=== PATIENT | male | born 1960 | race Two or more races ===

== ENCOUNTER 2022-05-20 22:44 | Inpatient (IN) | payer MEDICAID ==
[~2022-05-20] VITALS: Ht 157.5 cm; Wt 68.9 kg
--- NOTE | 2022-05-20 23:00 | NUR ---
TO ER BED 11. [id number] FROM HOME C/O GLF AFTER DRINKING. REMA ARM PAIN . RR EVEN AND NONLABORED. CONNECTED TO MONITOR. SAFETY PRECAUTIONS IN PLACE. AWAITING MD ORDERS
[2022-05-20] MEDS ORDERED: IV NS 0.9% 1,000 ML BAG IV ONE (23:30)
[2022-05-20 23:33] LABS: BASOPHILS % (AUTO) 0.9 % (0.0-2.0); EOSINOPHILS % (AUTO) 1.9 % (0.0-6.0); HEMATOCRIT 40 % (39-51); HEMOGLOBIN 13.6 g/dL (13.5-17.5); LYMPHOCYTES # (AUTO) 1.8 K/uL (0.8-4.8); LYMPHOCYTES % (AUTO) 36.7 % (20.0-44.0); MEAN CORPUSCULAR HGB CONC 34 g/dl (31.0-36.0); MEAN CORPUSCULAR VOLUME 104 fL (80-96); MONOCYTES # (AUTO) 0.4 K/uL (0.1-1.30); MONOCYTES % (AUTO) 8.3 % (2.0-12.0); NEUTROPHILS # (AUTO) 2.5 K/uL (1.8-8.9); NEUTROPHILS % (AUTO) 52.2 % (43.0-81.0); PLATELET COUNT (AUTO) 166 K/uL (150-450); WHITE BLOOD COUNT (AUTO) 4.8 K/uL (4.3-11.0)
--- NOTE | 2022-05-20 23:42 | NUR ---
BLOOD COLLECTED AND SENT TO LAB
--- NOTE | 2022-05-20 23:42 | NUR ---
IV LINE ESTABLISHED, LAC20G
--- NOTE | 2022-05-21 00:23 | NUR ---
COVID SWAB COLLECTED AND SENT TO LAB
[2022-05-21 00:25] LABS: ALANINE AMINOTRANSFERASE 19 U/L (12-78); ALBUMIN 3.5 g/dL (3.4-5.0); ALCOHOL, BLOOD 230 mg/dL (0-0); ALKALINE PHOSPHATASE 53 U/L (46-116); ASPARTATE AMINOTRANSFERASE 19 U/L (15-37); BILIRUBIN,DIRECT 0.3 mg/dL (0.0-0.2); BILIRUBIN,TOTAL 1.2 mg/dL (0.2-1.0); TOTAL PROTEIN, SERUM 6.7 g/dL (6.4-8.2)
[2022-05-21] MEDS ORDERED: DILTIAZEM HCL 25 MG IV IV ONE (00:30)
[2022-05-21] MEDS ORDERED: DILTIAZEM HCL 50 MG IV ONE (00:35)
[2022-05-21 00:49] LABS: CALCIUM, SERUM 8.3 mg/dL (8.5-10.1); POTASSIUM 3.5 mmol/L (3.5-5.1)
[2022-05-21] MEDS ORDERED: Z GUARD REMEDY 4 OZ OINT TP PRN (01:00)
[2022-05-21] MEDS ORDERED: ONDANSETRON HCL/PF 4 MG/2 ML VIAL IVP PRN (01:00)
[2022-05-21] MEDS ORDERED: LORAZEPAM INJ 2 MG/ML VIAL IV PRN (01:00)
[2022-05-21] MEDS ORDERED: MAG HYDROX/AL HYDROX/SIMETH 30 ML UDC PO PRN (01:00)
[2022-05-21] MEDS ORDERED: MAGNESIUM HYDROXIDE 30 ML UDC PO PRN (01:00)
[2022-05-21] MEDS ORDERED: MORPHINE SULFATE INJ 2 MG/ML DISP.SYRIN IV PRN (01:00)
[2022-05-21] MEDS ORDERED: ACETAMINOPHEN 325 MG TABLET PO PRN (01:00)
[2022-05-21] MEDS ORDERED: TEMAZEPAM 15 MG CAPSULE PO PRN (01:00)
[2022-05-21] MEDS ORDERED: AMIODARONE 150 MG/3 ML VIAL IV ONE (01:00)
--- NOTE | 2022-05-21 02:52 | NUR ---
AMIODARINE DRIP VIA IV PUMP INITIATED @1MG/MIN
--- NOTE | 2022-05-21 03:11 | NUR ---
BED 106
--- NOTE | 2022-05-21 03:45 | NUR ---
REPORT GIVEN TO DARYN MUJICA FOR ZULEIMA
[2022-05-21 04:00] VITALS: BP 119/82
[2022-05-21] MEDS ORDERED: AMIODARONE 150 MG in IV D5W 100 ML IV ONE (04:00)
[2022-05-21] MEDS ORDERED: AMIODARONE 900 MG in IV D5W 482 ML IV PRN (04:00)
--- NOTE | 2022-05-21 04:30 | NUR ---
RN NOTE O430 RECEIVED 62 Y/O M PATIENT FROM ER VIA GURNEY ACCOMPANIED BY 2 ER STAFF, ON RA TOLERATING WELL SATING 99%, PATIENT IS AWAKE AND VERBALLY RESPONSIVE. SYRIAC SPEAKING, WITH IV ACCESS ON LFA #20G RUNNING AMIODARONE 1 MG, PER STEPHANIA MUJICAAIRCRAFT ELECTRONICS TECHNICAL OFFICER WASN'T SCANNED FROM THE ER BUT THEY STARTED IT 0250. ADMISSION CARE RENDERED, SKIN ASSESSMENT DONE, PICTURES TAKEN AND PLACED ON CHART, ABLE TO TURN AND REPOSITION, SAFETY PRECAUTIONS IN PLACED; CALL LIGHT WITHIN REACH AND INSTRUCTED TO CALL FOR ASSISTANCE, BED IN LOWEST AND LOCKED POSITION, V/S TAKEN AND RECORDED, WILL CONT TO MONITOR THROUGHOUT THE SHIFT.
[2022-05-21] MEDS: IV NS 0.9% 1,000 ML IV PRN ×2 (04:51→17:15)
[2022-05-21] MEDS: AMIODARONE 450 MG in IV D5W 241 ML IV PRN ×2 (05:12→08:22)
--- NOTE | 2022-05-21 06:59 | NUR ---
REJI RN CLOSING NOTES PT IN BED, A/O X 3, ABLE TO MAKE NEEDS KNOWN. ON ROOM AIR O2 SAT 100% NO SOB NO DISTRESS, RESPIRATION EVEN AND UNLABORED, ON TELE MONITORING CURRENTLY READING SR/ST AT 95, DENIES PAIN, IV ACCESS TO LFA #20G INTACT, PATENT, FLUSHES WELL, WITH NS AT 75 ML/HR AND AMIODARONE DRIP AT 1MG INFUSING WELL, USES URINAL WITH YELLOW COLORED URINE, ALL DUE MEDS GIVEN, KEPT DRY AND CLEAN, ALL SAFETY MEASURES IN PLACE. HOB ELEVATED. CALL LIGHT WITHIN REACH. BED IN LOWEST AND LOCKED POSITION, WILL ENDORSE TO AM SHIFT FOR CONTINUITY OF CARE.
[2022-05-21 08:00] VITALS: BP 143/82
--- NOTE | 2022-05-21 08:00 | NUR ---
REJI RN NOTES PT IN BED, A/O X 3, ABLE TO MAKE NEEDS KNOWN. ON ROOM AIR O2 SAT 98% NO SOB NO DISTRESS, RESPIRATION EVEN AND UNLABORED, ON TELE MONITORING CURRENTLY READING A FIB AT 86, DENIES PAIN, IV ACCESS TO LFA #20G INTACT, PATENT, FLUSHES WELL, WITH NS AT 75 ML/HR AND AMIODARONE DRIP AT 1MG INFUSING WELL, USES URINAL WITH YELLOW COLORED URINE, KEPT DRY AND CLEAN, ALL SAFETY MEASURES IN PLACE. HOB ELEVATED. CALL LIGHT WITHIN REACH. BED IN LOWEST AND LOCKED POSITION, WILL MONITOR
[2022-05-21] MEDS: PANTOPRAZOLE 40 MG TABLET.DR PO SCH (08:17)
--- NOTE | 2022-05-21 08:30 | NUR ---
REJI RN NOTE SPOKE WITH DR AVENDANO CHASSIS ENGINEER NOTIFIED THAT PATIENT WITH DX AFIB ON AMIODARONE DRIP STATED OK, WILL CONT TO ADMINISTER PER HOSPITAL PROTOCOL
--- NOTE | 2022-05-21 09:20 | NUR ---
REJI RN NOTE 2D ECHO DONE ORDERED WILL MONITOR
[2022-05-21] MEDS ORDERED: METO50TA16 PO (10:12)
[2022-05-21] MEDS ORDERED: MELO-107 PO (10:12)
[2022-05-21] MEDS ORDERED: LISI2.5T2 PO (10:12)
[2022-05-21] MEDS ORDERED: CETI10TA14 PO (10:12)
[2022-05-21] MEDS ORDERED: TAMS-12 PO (10:12)
[2022-05-21] MEDS ORDERED: RIVA10TA PO (10:12)
[2022-05-21] MEDS: METOPROLOL TARTRATE 50 MG TABLET PO SCH ×2 (10:42→16:23)
[2022-05-21] MEDS: LISINOPRIL (5MG) 5 MG TABLET PO SCH (10:42)
--- NOTE | 2022-05-21 11:56 | NUR ---
telecommunications repairer note assisted to br ,keep clean dry , all needs attended , on amiodarone drip as ordered with 0.5 mg per hour
[2022-05-21 12:00] VITALS: BP 145/90
--- NOTE | 2022-05-21 14:04 | NUR ---
radiotelegraph operator note spoke with dr Omid Mcdonald notified that patient on amiodarone drip will will be done at 0200 ,stated that w will convert to amiodarone po tomorrow morning
[2022-05-21 16:00] VITALS: BP 149/90
--- NOTE | 2022-05-21 18:38 | NUR ---
REJI RN NOTE PATIENT RESTING COMFORTABLY IN BED, ALERT ORIENTED ,ON RA, NO SOB NOTED AT THIS TIE , CALL LIGHT WITHIN REACH , CONT ON IVF AND AMIODARONE 1.5 MG IV DRIP ORDERED, ON TELE MONITOR CURRENT READING STILL AFIB HR 116 , LT AC HL INTACT AND FLUSHED WELL , BED IN LOWEST AND LOCKED POSITION , SAFETY MEASURE IMPLEMENTED, WILL CONT TO MONITOR CLOSELY
--- NOTE | 2022-05-21 19:30 | NUR ---
PATIENT RESTING COMFORTABLY IN BED, A/O x3, NIGERIEN SPEAKING ,ON RA, NO SOB NOTED AT THIS TIMEE, ON IVF NS AT 75ML/HR, AND AMIODARONE 1.5 MG IV DRIP ORDERED, ON TELE MONITOR CURRENT READING STILL AFIB WITH A HR OF 116 , LT AC HL INTACT AND FLUSHED WELL, PT CAN USE URINAL AT BEDSIDE AND COMMODE AT BED SIDE WITH ASSIST, SAFETY MEASURES IN PLACE, BED IN LOWEST AND LOCKED POSITION, HEAD OF BED SLIGHTLY ELEVATED, SIDE RAILS UP X2, CALL LIGHT WITHIN REACH, WILL CONTINUE PLAN OF CARE.
[2022-05-21 20:00] VITALS: BP 153/90
[2022-05-21] MEDS: HYDROCODONE/APAP 5/325MG TABLET PO PRN (20:28)
[2022-05-21] MEDS ORDERED: DIGOXIN INJ 0.5 MG/2 ML AMPUL IV ONE (22:00)
[2022-05-21] MEDS ORDERED: DIGOXIN INJ 0.5 MG/2 ML AMPUL IV SCH (22:00)
--- NOTE | 2022-05-21 22:04 | NUR ---
REJI RN NOTE PT REMAIN ON AMIO DRIP AT 0.5 MG/HR WHICH WILL FINISH AT 0200. ALSO PT ON A FIB CONTROLLED AND UNCONTROLLED HR 106-[address] AVENDANO AND RECIEVED NEW ORDER OF DIG 0.25 MG NOW AND REPEAT AT 0300 AND O900. ORDER NOTED AND CARRIED OUT. CONTINUE TO MONITOR HR AND PT CONDITION .
--- NOTE | 2022-05-21 23:48 | NUR ---
Pt complains of generalized pain. BP 160/90. HR 104. Charge nurse informed. Pain med given as requested and as ordered. Will continue to monitor.
[2022-05-22] VITALS: BP 160/99
[2022-05-22] MEDS: DIGOXIN INJ 0.5 MG/2 ML AMPUL IV SCH ×2 (03:06→09:19)
[2022-05-22 04:00] VITALS: BP 160/90
[2022-05-22] MEDS: HYDROCODONE/APAP 5/325MG TABLET PO PRN (04:35)
--- NOTE | 2022-05-22 04:52 | NUR ---
LT AC IV ACCESS INFILTRATED. REMOVED AND APPLIED PRESSURE ON SITE. REINSERTED IV ACCESS ON LT HAND G#22. PT TOLERATED PROCEDURE WELL. ELEVATED EXTREMITY.
[2022-05-22] MEDS: IV NS 0.9% 1,000 ML IV PRN (06:51)
--- NOTE | 2022-05-22 06:53 | NUR ---
PATIENT SLEEPING COMFORTABLY IN BED, A/O x3, KHMER SPEAKING ,ON RA, NO SOB NOTED AT THIS TIME, ON IVF NS AT 75ML/HR, ON TELE MONITOR CURRENT READING CONTROLLED AFIB WITH A HR OF 99-114, LT HAND IV ACCESS INTACT AND FLUSHED WELL, INFUSING 0.9NS AT 75 ML/HR. PT CAN USE URINAL AT BEDSIDE AND COMMODE AT BED SIDE WITH ASSIST, SAFETY MEASURES MAINTAINED, BED IN LOWEST AND LOCKED POSITION, HEAD OF BED SLIGHTLY ELEVATED, SIDE RAILS UP X2, CALL LIGHT WITHIN REACH, WILL ENDORSE TO NEXT NURSE ON DUTY FOR CONTINUITY OF CARE.
[2022-05-22 07:09] LABS: CALCIUM, SERUM 8.1 mg/dL (8.5-10.1); PHOSPHORUS 2.4 mg/dL (2.5-4.9); POTASSIUM 3.7 mmol/L (3.5-5.1)
--- NOTE | 2022-05-22 07:25 | NUR ---
REJI RN OPENING NOTES: RECEIVED PT FOR CONTINUITY OF CARE. PATIENT A/OX4 IN NO S/SX OF ACUTE DISTRESS AT THIS TIME; CURRENtly ON ROOM AIR; WITH 02 SAT >95% AT THIS TIME.WITH IV ACCESS ON LEFT HAND PATENT, INTACT AND FLUSHING WELL. WITH RUNNING NS@75CC/HRWILL ENSURE SAFETY MEASURES WITHIN THE SHIFT. PATIENT BED ALARM IS ON. HEAD OF BED ELEVATED. BED IS LOCKED, IN LOWEST POSITION AND SIDE RAILS UP. CALL LIGHT WITHIN REACH OF THE PATIENT. WILL CONTINUE TO MONITOR AND REASSESS FOR ANY CHANGES AND WILL CARRY OUT ANY ONGOING AND ACTIVE MD ORDER.
[2022-05-22 07:34] LABS: BASOPHILS % (AUTO) 0.7 % (0.0-2.0); EOSINOPHILS % (AUTO) 3.3 % (0.0-6.0); HEMATOCRIT 39 % (39-51); HEMOGLOBIN 13.3 g/dL (13.5-17.5); LYMPHOCYTES # (AUTO) 1.8 K/uL (0.8-4.8); LYMPHOCYTES % (AUTO) 34.7 % (20.0-44.0); MEAN CORPUSCULAR HGB CONC 34 g/dl (31.0-36.0); MEAN CORPUSCULAR VOLUME 104 fL (80-96); MONOCYTES # (AUTO) 0.4 K/uL (0.1-1.30); MONOCYTES % (AUTO) 7.8 % (2.0-12.0); NEUTROPHILS # (AUTO) 2.8 K/uL (1.8-8.9); NEUTROPHILS % (AUTO) 53.5 % (43.0-81.0); PLATELET COUNT (AUTO) 153 K/uL (150-450); RED BLOOD CELL COUNT(AUTO) 3.75 MIL/uL (4.5-6.0); WHITE BLOOD COUNT (AUTO) 5.2 K/uL (4.3-11.0)
[2022-05-22] MEDS: PANTOPRAZOLE 40 MG TABLET.DR PO SCH (07:52)
[2022-05-22 08:00] VITALS: BP 161/102
[2022-05-22] MEDS: LISINOPRIL (5MG) 5 MG TABLET PO SCH (08:04)
[2022-05-22] MEDS: METOPROLOL TARTRATE 50 MG TABLET PO SCH ×2 (08:04→17:27)
[2022-05-22] MEDS: TAMSULOSIN 0.4 MG CAP.SR.24H PO SCH (09:19)
[2022-05-22] MEDS: RIVAROXABAN 10 MG TABLET PO SCH (09:22)
--- NOTE | 2022-05-22 09:58 | NUR ---
RN NOTES: PT COMPLAINED OF BOTH GROIN ITCHINESS, SKIN INTACT NO RASH NO REDNESS, SPOKE TO dr Luisa Dumont WITH ORDER OF KETOCONAZOLE CREAM
[2022-05-22] MEDS: KETOCONAZOLE 2% CREAM 15 GM TUBE TP SCH ×2 (11:26→17:27)
[2022-05-22 12:00] VITALS: BP 154/94
[2022-05-22] MEDS ORDERED: NEUTRA PHOS 1 POWD.PACKET PO ONE (13:00)
[2022-05-22] MEDS: ENSURE ENLIVE 237 ML LIQUID (VANILLA) PO SCH ×2 (13:15→17:41)
[2022-05-22 16:00] VITALS: BP 125/80
--- NOTE | 2022-05-22 16:31 | NUR ---
RN NOTES: PT BECAME TEL NOT REJI PER MD ORDER
--- NOTE | 2022-05-22 19:25 | NUR ---
ACCOUNT SERVICES REPRESENTATIVE CLOSING NOTES: PATIENT REMAINS IN ROOM IN NO SIGNS OF RESPIRATORY DISTRESS, PATIENT SON ROOM AIR SATURATING @ >95% SP02. SAFETY MEASURES IMPLEMENTED, BED IN LOWEST POSITION, LOCKED, SIDE RAILS UP, CALL LIGHT WITHIN REACH. ALL NEEDS AND ORDERS ADDRESSED DURING THE SHIFT. IV ACCESS MAINTAINED INTACT, SECURED AND FLUSHING WELL. ALL DUE MEDS GIVEN ORDERED & SCHEDULED ; PATIENT TOLERATED WELL. PATIENT KEPT CLEAN AND COMFORTABLE WITHIN THE SHIFT. PATIENT ENDORSED TO INCOMING SHIFT RN WITH STABLE VITAL SIGN AND FOR CONTINUITY OF CARE.
--- NOTE | 2022-05-22 19:43 | NUR ---
RN OPENING NOTE PATIENT AWAKE IN BED. A/OX3. NO S/S OF DISTRESS, BREATHING WITHOUT DIFFICULTY ON ROOM AIR. L-HAND #22 INTACT AND PATENT W/ NS 75ML/HR. TELE READS AFIB 79. SAFETY MEASURES IN PLACE: BED LOCKED IN PLACE AND AT LOWEST POSITION, RAILS UP X2, CALL HEADLEY WITHIN REACH. WILL CONTINUE TO MONITOR PATIENT.
[2022-05-22 20:00] VITALS: BP 151/91
--- NOTE | 2022-05-22 20:39 | NUR ---
RN NOTE PATIENT EXHIBITS FEVER OF 99.4. ICE BAGS PLACED UNDER ARMS BILAT. TYLENOL WILL BE ADMINISTERED. PATIENT OTHERWISE STABLE.
[2022-05-23] VITALS: BP 132/87
[2022-05-23 04:19] VITALS: BP 145/100
[2022-05-23] MEDS: IV NS 0.9% 1,000 ML IV PRN (04:28)
--- NOTE | 2022-05-23 06:42 | NUR ---
RN CLOSING NOTE PATIENT ASLEEP IN BED. A/OX3. NO S/S OF DISTRESS, BREATHING WITHOUT DIFFICULTY ON ROOM AIR. L-HAND #22 INTACT AND PATENT W/ NS 75ML/HR. TELE READS AFIB CONTROLLED 87. SAFETY MEASURES IN PLACE: BED LOCKED AND AT LOWEST POSITION, RAILS UP X2, CALL HEADLEY WITHIN REACH. WILL ENDORSE TO NEXT SHIFT FOR ZULEIMA.
--- NOTE | 2022-05-23 07:30 | NUR ---
RN OPENING NOTE PATIENT IS IN BED ASLEEP BUT EASILY AROUSABLE. ALERT AND ORIENTED X 4. ON ROOM AIR, BREATHING UNLABORED AND NOT IN ANY FORM OF DISTRESS. A-FIBRILLATION IN CONTROLLED RATE ON METER SETTER. WITH LEFT HAND GAUGE 22 IV LINE INFUSING WITH NS AT 75 ML/HR. ALL HOSPITAL SAFETY PRECAUTIONS IN PLACE. BED IS LOCKED IN LOWEST POSITION, 3 SIDE RAILS UP, CALL LIGHT WITHIN REACH. WILL CONTINUE TO MONITOR THROUGHOUT SHIFT.
[2022-05-23 08:00] VITALS: BP 155/97
[2022-05-23] MEDS ORDERED: LISINOPRIL (20MG) 20 MG TABLET PO SCH (09:00)
[2022-05-23] MEDS: METOPROLOL TARTRATE 50 MG TABLET PO SCH (09:10)
[2022-05-23 09:11] VITALS: BP 155/97
[2022-05-23] MEDS: RIVAROXABAN 10 MG TABLET PO SCH (09:11)
[2022-05-23] MEDS: TAMSULOSIN 0.4 MG CAP.SR.24H PO SCH (09:11)
[2022-05-23] MEDS: PANTOPRAZOLE 40 MG TABLET.DR PO SCH (09:11)
[2022-05-23] MEDS: ENSURE ENLIVE 237 ML LIQUID (VANILLA) PO SCH ×2 (09:13→12:18)
[2022-05-23] MEDS: KETOCONAZOLE 2% CREAM 15 GM TUBE TP SCH (09:56)
--- NOTE | 2022-05-23 11:00 | NUR ---
RN NOTE PATIENT DOWNGRADED TO MED-SURGE.
[2022-05-23] MEDS ORDERED: THIA100T88 PO (14:26)
[2022-05-23] MEDS ORDERED: KETO15CR2 TP (14:28)
[2022-05-23] MEDS ORDERED: LISI20TA30 PO (14:28)
[2022-05-23] MEDS ORDERED: METO50TA16 PO (14:28)
[2022-05-23] MEDS ORDERED: INFLUENZA VACCINE 2022-23 0.5 ML DISP.SYRIN IM ONE (15:30)
--- NOTE | 2022-05-23 15:36 | NUR ---
RN CLOSING NOTE PATIENT IS DISCHARGED TO HOME IN STABLE CONDITION, BREATHING UNLABORED AND NOT IN ANY FORM OF DISTRESS. FLU VACCINE ADMINISTERED ORDERED. NO UNTOWARD SIGNS AND SYMPTOMS NOTED AFTER ADMINISTRATION. ALL FORMS SIGNED, PATIENT EDUCATION MATERIALS AND DISCHARGE INSTRUCTIONS GIVEN. IV DISCONTINUED. DISCHARGE V/S: T 98, HR 83, RR 18, O2 SATURATION 97%, BP 148/93.
== END 2022-05-23 15:40 | disposition home or self-care (01) | DRG 201 ==
LOC: ER 22:50 → TELE1 05-21 03:48 → TELE-TD 05-21 08:01 → TELE1 05-22 16:32 → MEDSG1 05-23 08:20
PROVIDERS: ADMIT Nurse Practitioner Acute Care; ATTEND Nurse Practitioner Acute Care
DX: I48.91 Unspecified atrial fibrillation (principal); D68.59 Other primary thrombophilia; S09.90XA Unspecified injury of head, initial encounter; F10.129 Alcohol abuse with intoxication, unspecified; I10 Essential (primary) hypertension; Y90.7 Blood alcohol level of 200-239 mg/100 ml; Z20.822 Contact with and (suspected) exposure to COVID-19; W19.XXXA Unspecified fall, initial encounter; Y92.9 Unspecified place or not applicable; S80.10XA Contusion of unspecified lower leg, initial encounter; S40.029A Contusion of unspecified upper arm, initial encounter; N40.0 Benign prostatic hyperplasia without lower urinary tract symptoms; F17.200 Nicotine dependence, unspecified, uncomplicated
CPT/HCPCS: 36415; 70450-TC; 71045-TC; 72125-TC; 73080-TC; 80048-TC; 80076-TC; 83735-TC; 84100-TC; 84484-TC; 85025-TC; 85730-TC; 87081-TC; 93307-TC; C9803; G0378; G0480; J0282; J1160; J3490; J7030; J7060; Q2036

== ENCOUNTER 2022-11-07 20:34 | Inpatient (IN) | payer MEDICAID ==
[~2022-11-07] VITALS: Ht 165.1 cm; Wt 65.8 kg
[~2022-11-07 20:34] MED LIST: CETI10TA14 PO; KETO15CR2 TP; LISI20TA30 PO; MELO-107 PO; METO50TA16 PO; RIVA10TA PO; TAMS-12 PO; THIA100T88 PO
[2022-11-07 21:10] LABS: BASOPHILS % (AUTO) 0.8 % (0.0-2.0); EOSINOPHILS % (AUTO) 2.8 % (0.0-6.0); HEMATOCRIT 39 % (39-51); HEMOGLOBIN 12.9 g/dL (13.5-17.5); LYMPHOCYTES # (AUTO) 2.9 K/uL (0.8-4.8); MEAN CORPUSCULAR HGB CONC 33 g/dl (31.0-36.0); MEAN CORPUSCULAR VOLUME 103 fL (80-96); MONOCYTES # (AUTO) 0.7 K/uL (0.1-1.30); MONOCYTES % (AUTO) 11.4 % (2.0-12.0); NEUTROPHILS # (AUTO) 2.2 K/uL (1.8-8.9); PLATELET COUNT (AUTO) 170 K/uL (150-450); RED BLOOD CELL COUNT(AUTO) 3.75 MIL/uL (4.5-6.0)
[2022-11-07 21:23] LABS: CALCIUM, SERUM 8.9 mg/dL (8.5-10.1); CARBON DIOXIDE 30 mmol/L (21-32); CHLORIDE 106 mmol/L (98-107); GLUCOSE 99 mg/dL (74-106); SODIUM SERUM 139 mmol/L (136-145); UREA NITROGEN, BLOOD 18 mg/dL (7-18)
[2022-11-07] MEDS ORDERED: HYDROCODONE/APAP 5/325MG TABLET ONE (21:46)
[2022-11-07] MEDS ORDERED: HYDROCODONE/APAP 5/325MG TABLET PO ONE (22:00)
--- NOTE | 2022-11-07 23:49 | NUR ---
COVID SWAB DONE AND SENT TO LAB
[2022-11-08] MEDS ORDERED: ONDANSETRON HCL/PF 4 MG/2 ML VIAL IVP PRN
[2022-11-08] MEDS ORDERED: NITROGLYCERIN 0.4 MG/TAB BOTTLE SL ONE
[2022-11-08] MEDS ORDERED: MAGNESIUM HYDROXIDE 30 ML UDC PO PRN
[2022-11-08] MEDS ORDERED: ZOLPIDEM TARTRATE 5 MG TABLET PO PRN
[2022-11-08] MEDS ORDERED: MAG HYDROX/AL HYDROX/SIMETH 30 ML UDC PO PRN
[2022-11-08] MEDS ORDERED: MORPHINE SULFATE INJ 2 MG/ML DISP.SYRIN IV PRN
[2022-11-08] MEDS ORDERED: ACETAMINOPHEN 325 MG TABLET PO PRN
[2022-11-08] MEDS ORDERED: Z GUARD REMEDY 4 OZ OINT TP PRN
[2022-11-08] MEDS ORDERED: LORAZEPAM 1 MG TABLET PO PRN (00:30)
[2022-11-08] MEDS ORDERED: METOPROLOL TARTRATE 25 MG TABLET PO SCH (01:02)
--- NOTE | 2022-11-08 01:24 | NUR ---
REPORT GIVEN TO JOSE MUJICA FOR ZULEIMA
--- NOTE | 2022-11-08 01:32 | NUR ---
COVID SWAB DONE AND SENT TO LAB
--- NOTE | 2022-11-08 02:32 | NUR ---
CALLED LAB TO WAREHOUSE ORDER PICKER COVID SPECIMEN. NO ANSWER.
--- NOTE | 2022-11-08 03:47 | NUR ---
TRANSFERRED TO BED 114 IN STABLE CONDITION
[2022-11-08] MEDS ORDERED: NITROGLYCERIN 0.4 MG/TAB BOTTLE ONE (03:53)
[2022-11-08 04:00] VITALS: BP 150/95
--- NOTE | 2022-11-08 04:00 | NUR ---
LAST PICKERTIE WORKER NOTE PT TRANSPORTED VIA GURNEY TO UNIT FROM ER AT THIS TIME. PT ADMITTED TO TELE FROM ER UNDER ORACLE IAM CONSULTANT DANYELL FOR ADMITTING DX CHEST PAIN. A/O X3 AND ABLE TO MAKE NEEDS KNOWN. PT STABLE ON ROOM AIR, SATURATING 97%. NO SOB OR S/S OF RESPIRATORY DISTRESS. BREATHING EVEN AND UNLABORED. ON EXTERNAL TOOLROOM CHECKER READING UNCONTROLLED A FIB 120 BPM. NOTED WITH UNRESOLVED CHEST PAIN 7/10 UPON EXERTION, 0/10 AT REST. IV ACCESS RAC 18G, INTACT AND PATENT. SKIN IS INTACT. AMBULATORY WITH STEADY GAIT. PT BELONGINGS ACCOUNTED FOR AND BELONGINGS LIST SIGNED. ORIENTED TO UNIT, ROOM, AND STAFF. SAFETY PRECAUTIONS IN PLACE. BED IN LOWEST LOCKED POSITION, HOB ELEVATED, SIDE RAILS UP X2, AND CALL LIGHT AND TABLE WITHIN REACH. ALL NEEDS MET AT THIS TIME.
--- NOTE | 2022-11-08 04:05 | NUR ---
RN NOTE COMPLAINT OF CHEST PAIN 7/10 UPON EXERTION. PROVIDED NITRO SL 0.4 MG ORDERED EVERY 5 MINUTES X3 DOSES. PT STATED AFTER 3RD DOSE THAT HE DID FEEL RELIEF, BUT IS STILL A LITTLE PAINFUL WHILE MOVING AROUND. PAIN 0/10 AT REST AT THIS TIME. CHARGE NURSE MARK DUFF.
[2022-11-08] MEDS: IV NS 0.9% 1,000 ML IV PRN ×2 (04:47→17:28)
--- NOTE | 2022-11-08 06:39 | NUR ---
DISTRICT MANAGER CLOSING NOTE PT AWAKE IN BED. A/O X3 AND ABLE TO MAKE NEEDS KNOWN. PT STABLE ON ROOM AIR, SATURATING 96%. NO SOB OR S/S OF RESPIRATORY DISTRESS. BREATHING EVEN AND UNLABORED. ON EXTERNAL DEPUTY SHERIFF CHIEF READING CONTROLLED A FIB 77 BPM. IV ACCESS RAC 18G, INTACT AND PATENT, RUNNING NS @ 75 ML/HR. ALL DUE MEDS GIVEN ORDERED. SAFETY PRECAUTIONS IN PLACE AT ALL TIMES. BED IN LOWEST LOCKED POSITION, HOB ELEVATED, SIDE RAILS UP X2, AND CALL LIGHT AND TABLE WITHIN REACH. ALL NEEDS MET AT THIS TIME AND WILL ENDORSE TO ONCOMING NURSE FOR ZULEIMA.
[2022-11-08 06:47] LABS: BASOPHILS % (AUTO) 0.9 % (0.0-2.0); EOSINOPHILS % (AUTO) 3.4 % (0.0-6.0); HEMATOCRIT 37 % (39-51); HEMOGLOBIN 12.6 g/dL (13.5-17.5); LYMPHOCYTES # (AUTO) 2.2 K/uL (0.8-4.8); LYMPHOCYTES % (AUTO) 46.7 % (20.0-44.0); MEAN CORPUSCULAR HGB CONC 34 g/dl (31.0-36.0); MEAN CORPUSCULAR VOLUME 102 fL (80-96); MONOCYTES # (AUTO) 0.5 K/uL (0.1-1.30); MONOCYTES % (AUTO) 10.7 % (2.0-12.0); NEUTROPHILS # (AUTO) 1.8 K/uL (1.8-8.9); NEUTROPHILS % (AUTO) 38.3 % (43.0-81.0); PLATELET COUNT (AUTO) 165 K/uL (150-450); RED BLOOD CELL COUNT(AUTO) 3.64 MIL/uL (4.5-6.0); WHITE BLOOD COUNT (AUTO) 4.7 K/uL (4.3-11.0)
[2022-11-08 07:35] LABS: THYROID STIMULATING HORMONE 2.252 uIU/mL (0.358-3.74)
--- NOTE | 2022-11-08 07:40 | NUR ---
FARMWORKER POULTRY OPENING NOTE PT AWAKE IN BED. A/O X3 AND ABLE TO MAKE NEEDS KNOWN. BULGARIAN SPEAKING ON ROOM AIR TLOERATED WELL , NO SOB OR S/S OF RESPIRATORY DISTRESS. . ON EXTERNAL MANAGER BRIDGE READING CONTROLLED A FIB 77 BPM. IV ACCESS RAC 18G, INTACT AND PATENT, RUNNING NS @ 75 ML/HR. ALL DUE MEDS GIVEN ORDERED. SAFETY PRECAUTIONS IN PLACE AT ALL TIMES. BED IN LOWEST LOCKED POSITION, HOB ELEVATED, SIDE RAILS UP X2, AND CALL LIGHT AND TABLE WITHIN REACH. ALL NEEDS MET AT THIS TIME AND WILL CONTINUE OT MONITOR .
[2022-11-08] MEDS: THIAMINE HCL 100 MG TABLET PO SCH (08:43)
[2022-11-08] MEDS: FOLIC ACID 1 MG TABLET PO SCH (08:43)
[2022-11-08] MEDS: APIXABAN 5 MG TABLET PO SCH ×2 (08:50→21:13)
[2022-11-08] MEDS ORDERED: ASPIRIN 81 MG TAB.CHEW PO SCH (09:00)
[2022-11-08] MEDS ORDERED: PANTOPRAZOLE 40 MG VIAL IV SCH (09:00)
[2022-11-08 09:17] LABS: ALBUMIN 3.4 g/dL (3.4-5.0); BILIRUBIN,TOTAL 1.4 mg/dL (0.2-1.0); CALCIUM, SERUM 8.8 mg/dL (8.5-10.1); CREATININE 0.9 mg/dL (0.6-1.3); PHOSPHORUS 3.5 mg/dL (2.5-4.9); POTASSIUM 3.6 mmol/L (3.5-5.1); TOTAL PROTEIN, SERUM 6.1 g/dL (6.4-8.2)
[2022-11-08] MEDS: METOPROLOL TARTRATE 25 MG TABLET PO SCH ×3 (09:26→17:57)
[2022-11-08] MEDS ORDERED: ATOR10TA PO (11:18)
[2022-11-08] MEDS ORDERED: METO25TA20 PO (11:18)
[2022-11-08] MEDS ORDERED: ACET-2605 PO (11:18)
[2022-11-08] MEDS ORDERED: APIX5TAB PO (11:18)
[2022-11-08] MEDS ORDERED: TRAM50TA2 PO (11:18)
[2022-11-08] MEDS ORDERED: NAPR-1009 PO (11:18)
[2022-11-08 11:20] VITALS: BP 136/101
--- NOTE | 2022-11-08 18:42 | NUR ---
AIRCRAFT MAINTENANCE MANAGER CLOSING NOTE PT AWAKE IN BED. A/O X3 AND ABLE TO MAKE NEEDS KNOWN. INDONESIAN SPEAKING ON ROOM AIR TLOERATED WELL , NO SOB OR S/S OF RESPIRATORY DISTRESS. . ON EXTERNAL RAYON CONER READING CONTROLLED A FIB 113 BPM. IV ACCESS RAC 18G, INTACT AND PATENT, RUNNING NS @ 75 ML/HR. ALL DUE MEDS GIVEN ORDERED. PATIENT ABLE OT OG TO THE BATHROOM , NO S/S OF ALCOHOL WITHDRAWAL NOTED . SAFETY PRECAUTIONS IN PLACE AT ALL TIMES. BED IN LOWEST LOCKED POSITION, HOB ELEVATED, SIDE RAILS UP X2, AND CALL LIGHT AND TABLE WITHIN REACH. ALL NEEDS MET AT THIS TIME AND WILL ENDORSED TRO NEXT SHIFT .
[2022-11-08 19:10] LABS: BILIRUBIN,URINE NEGATIVE (NEGATIVE); LEUKOCYTE ESTERASE ,URINE NEGATIVE (NEGATIVE); NITRITE, URINE NEGATIVE (NEGATIVE); PROTEIN,URINE NEGATIVE (NEGATIVE); UGLUCOSE NEGATIVE (NEGATIVE); UROBILINOGEN,URINE 0.2 EU/dL (0.2)
[2022-11-08 19:21] LABS: COLOR,URINE LIGHT YELLOW (YELLOW)
--- NOTE | 2022-11-08 19:30 | NUR ---
RN NOTE RECEIVED PT IN BED, ALERT, AND ORIENTED X3. ABLE TO MAKE NEEDS KNOWN, ABLE TO FOLLOW COMMANDS. DENIES PAIN OR DISCOMFORT AT THIS TIME. PT ON ROOM AIR, WELL SHEYLA, NO ACUTE RESP DISTRESS, RESPIRATION EVEN AND UNLABORED. PT ATTACHED TO EXTERNAL EDGE FINISHER CURRENT READING AFIB HR93. NS INSFUSING AT 75ML/HR ON RAC 18G. PT AMBULATORY W/ ASSIST, BRP AND USES URINAL. CALL LIGHT WITHIN EASY, SAFETY PRECAUTION OBSERVED, BED ALARM ON. WILL CONTINUE POC.
[2022-11-08 20:00] VITALS: BP 135/72
[2022-11-09] VITALS: BP 133/76
[2022-11-09] MEDS: METOPROLOL TARTRATE 25 MG TABLET PO SCH ×4 (00:24→17:54)
[2022-11-09 04:00] VITALS: BP 140/78
[2022-11-09] MEDS: IV NS 0.9% 1,000 ML IV PRN (05:53)
[2022-11-09 06:48] LABS: EOSINOPHILS % (AUTO) 2.9 % (0.0-6.0); HEMATOCRIT 40 % (39-51); HEMOGLOBIN 13.5 g/dL (13.5-17.5); LYMPHOCYTES # (AUTO) 1.8 K/uL (0.8-4.8); MEAN CORPUSCULAR HGB CONC 34 g/dl (31.0-36.0); MEAN CORPUSCULAR VOLUME 103 fL (80-96); MONOCYTES # (AUTO) 0.5 K/uL (0.1-1.30); MONOCYTES % (AUTO) 10.8 % (2.0-12.0); NEUTROPHILS # (AUTO) 1.8 K/uL (1.8-8.9); NEUTROPHILS % (AUTO) 42.3 % (43.0-81.0); PLATELET COUNT (AUTO) 173 K/uL (150-450); RED BLOOD CELL COUNT(AUTO) 3.91 MIL/uL (4.5-6.0); WHITE BLOOD COUNT (AUTO) 4.3 K/uL (4.3-11.0)
--- NOTE | 2022-11-09 06:50 | NUR ---
RN NOTE PT REMAINS IN STABLE CONDITION. NO SIGNIFICANT CHANGES NOTED DURING THE SHIFT. REMAINS ON ROOM AIR, NO SOB, NO ACUTE RESP DISTRESS. EXTERNAL LABORER HEADING READS AFIB HR89, CONTROLLED, PT WITH CHRONIC AFIB. NS AT 75ML/HR INFUSING ON RAC PIV. DUE MEDICATIONS GIVEN ORDERED. PM CARE PROVIDED. CALL LIGHT WITHIN EASY REACH AT ALL TIMES. SAFETY PRECAUTIONS IMPLEMENTED. WILL ENDORSE TO AM SHIFT NURSE FOR ZULEIMA.
--- NOTE | 2022-11-09 07:20 | NUR ---
RN OPEN TELE NOTE: AWAKE ALERT TIMES 3. UNLABORED BREATHING AT ROOM AIR. PLANT PRODUCTION WORKER A.FIB 112 HR. IV ON RIGHT AC. G18 WITH IVF OF NS 75 ML/HR. ASSISTED TO BATHROOM ABLE TO AMBULATE WITH ASSIST. MOVED BOWELS. ASSISTED WITH MORNING CARE AND PERICARE. ASSISTED BACK TO BED. BED WITH HALF SIDE RAILS UP X2. BED IN LOW POSITION, LOCKED AND EXIT ALARM ON. CALL LIGHT IN REACH.
[2022-11-09 07:51] LABS: CALCIUM, SERUM 8.8 mg/dL (8.5-10.1); CREATININE 0.8 mg/dL (0.6-1.3); PHOSPHORUS 3.2 mg/dL (2.5-4.9); POTASSIUM 3.8 mmol/L (3.5-5.1)
[2022-11-09 08:00] VITALS: BP 147/96
[2022-11-09] MEDS: PANTOPRAZOLE 40 MG TABLET.DR PO SCH (09:45)
[2022-11-09] MEDS: FOLIC ACID 1 MG TABLET PO SCH (09:45)
[2022-11-09] MEDS: THIAMINE HCL 100 MG TABLET PO SCH (09:51)
--- NOTE | 2022-11-09 10:05 | NUR ---
DAVE SCHROEDER INFORMED PATIENT GOING FOR CT ANGIO HEART W/3D IMAGE, PER RADIOLOGY OK TO GIVE ELIQUIS BUT PATIENT NEEDS TO HAVE HR LESS THAN 70. PATIENT HAS A.FIB 83 RIGHT NOW AND PATIENT IS SCHEDULED TO HAVE A 12 NOON DOSE LOPRESSOR SCHEDULED, RADIOLOGY REQUESTING MEDS TO DECREASED HR LESS THAN 70. PER DAVE LLANES SPRAY DRIER OPERATOR TO CALL DOCTOR ROMANA RUST PROOFER FOR POSSIBLE IV MEDS INSTEAD OF PO.
--- NOTE | 2022-11-09 10:10 | NUR ---
DOCTOR AVENDANO INFORMED OF RADIOLOGY REQUEST WITH ORDERS TO GIVE LOPRESSOR 50MG PO TIMES ONE NOW TO KEEP HR LESS THAN 70. DOCTOR AVENDANO INFORMED PATIENT IS SCHEDULED TO HAVE A 12 NOON DOSE OF LOPRESSOR SCHEDULED TOO.
[2022-11-09] MEDS: APIXABAN 5 MG TABLET PO SCH ×2 (10:19→20:45)
[2022-11-09] MEDS ORDERED: METOPROLOL TARTRATE 50 MG TABLET PO SCH (10:20)
[2022-11-09] MEDS ORDERED: METOPROLOL TARTRATE 50 MG TABLET PO ONE ×2 (10:30)
[2022-11-09 12:00] VITALS: BP 137/96
[2022-11-09] MEDS ORDERED: IV NS 0.9% 250 ML IV ONE (13:21)
[2022-11-09] MEDS ORDERED: NITROGLYCERIN 0.4 MG/TAB BOTTLE ONE (13:21)
[2022-11-09] MEDS ORDERED: CT SWABBABLE VALVE TRANS SET 1 EA INFUS.SET MC ONE (13:21)
[2022-11-09] MEDS ORDERED: METOPROLOL TARTRATE INJ 5 MG/5 ML AMPUL ONE ×3 (13:21→13:47)
[2022-11-09] MEDS ORDERED: IOHEXOL-350 100 ML VIAL IV ONE (13:21)
[2022-11-09] MEDS ORDERED: NITROGLYCERIN 0.4 MG/TAB BOTTLE SL ONE (13:30)
[2022-11-09] MEDS: METOPROLOL TARTRATE INJ 5 MG/5 ML AMPUL IVP PRN ×8 (13:35→14:10)
--- NOTE | 2022-11-09 14:11 | NUR ---
CTCA PROCEDURE WELL TOLERATED BY THE PT. PT IS AAOX4 SWISS SPEAKING ONLY, NOT IN RESPIRATORY DISTRESS, V/S STABLE, KEPT RESTED AND COMFORTABLE. REPORT GIVEN TO BEDSIDE RN FOR ZULEIMA.
[2022-11-09 16:00] VITALS: BP 122/84
[2022-11-09 20:00] VITALS: BP 133/88
[2022-11-10] VITALS: BP 145/92
[2022-11-10] MEDS: METOPROLOL TARTRATE 25 MG TABLET PO SCH ×3 (00:30→12:00)
[2022-11-10 04:00] VITALS: BP 141/85
--- NOTE | 2022-11-10 07:35 | NUR ---
RIPRAP MAN OPENING NOTE( REJI DAYSHIFT) AWAKE ALERT TIMES 3. UNLABORED BREATHING AT ROOM AIR. BOAT GARNISHER A.FIB 100s - 80s HR. IV ON RIGHT AC. G18 WITH IVF OF NS 75 ML/HR. ASSISTED TO BATHROOM ABLE TO AMBULATE WITH ASSIST. MOVED BOWELS. ASSISTED WITH MORNING CARE AND PERICARE. ASSISTED BACK TO BED. BED WITH HALF SIDE RAILS UP X2. BED IN LOW POSITION, LOCKED AND EXIT ALARM ON. CALL LIGHT WITHIN REACH. WILL CONTINUE TO MONITOR AND CARE FOR PATIWENT PER HOSPITALIST'S POC.
[2022-11-10 08:00] VITALS: BP 153/91
[2022-11-10] MEDS: FOLIC ACID 1 MG TABLET PO SCH (09:20)
[2022-11-10] MEDS: THIAMINE HCL 100 MG TABLET PO SCH (09:20)
[2022-11-10] MEDS: PANTOPRAZOLE 40 MG TABLET.DR PO SCH (09:20)
[2022-11-10] MEDS: APIXABAN 5 MG TABLET PO SCH (09:21)
[2022-11-10] MEDS ORDERED: SIMV-49 PO (11:40)
[2022-11-10] MEDS ORDERED: METO25TA20 PO (11:40)
[2022-11-10] MEDS ORDERED: Thiamine HCL PO (11:40)
[2022-11-10 12:00] VITALS: BP 148/77
--- NOTE | 2022-11-10 13:05 | NUR ---
SOAP CHIPPER REJI DISCHARGE NOTE Patient tolerated well the removal of # 18 gauge PIV catheter fully intact. Patient demonstrated understanding of discharge instructions with teach back method. Departed hospital @ 1310 hours via wheel chair to private car bound for home.
== END 2022-11-10 13:11 | disposition home or self-care (01) | DRG 201 ==
LOC: ER 20:36 → TELE1 11-08 00:53 → MEDSG1 11-10 08:23
PROVIDERS: ADMIT Nurse Practitioner Acute Care; ATTEND Registered Nurse
DX: I48.91 Unspecified atrial fibrillation (principal); D53.9 Nutritional anemia, unspecified; I10 Essential (primary) hypertension; N40.0 Benign prostatic hyperplasia without lower urinary tract symptoms; I25.10 Atherosclerotic heart disease of native coronary artery without angina pectoris; Z20.822 Contact with and (suspected) exposure to COVID-19; Z79.899 Other long term (current) drug therapy; Z79.82 Long term (current) use of aspirin; Z79.01 Long term (current) use of anticoagulants; F17.200 Nicotine dependence, unspecified, uncomplicated; F10.90 Alcohol use, unspecified, uncomplicated; Y90.0 Blood alcohol level of less than 20 mg/100 ml
CPT/HCPCS: 36415; 71045-TC; 75574; 80048-TC; 80053-TC; 80061-TC; 82962-TC; 83540-TC; 83735-TC; 84100-TC; 84443-TC; 84484-TC; 85025-TC; 87081-TC; 93307-TC; A4223; C9113; G0378; G0480; J3490; J7030; J7050; Q9967

== ENCOUNTER 2022-11-10 18:03 | Inpatient (IN) | payer MEDICAID ==
[~2022-11-10] VITALS: Ht 165.1 cm; Wt 67.1 kg
[~2022-11-10 18:03] MED LIST changes: +ACET-2605 PO; +APIX5TAB PO; +ATOR10TA PO; -KETO15CR2 TP; -LISI20TA30 PO; -MELO-107 PO; +METO25TA20 PO; -METO50TA16 PO; +NAPR-1009 PO; -RIVA10TA PO; +SIMV-49 PO; -THIA100T88 PO; +TRAM50TA2 PO; +Thiamine HCL PO
--- NOTE | 2022-11-10 18:05 | NUR ---
RECEIVED 62 YRS MALE CAME FROM HOME WALKING IN C/O CHEST PAIN ONE HR AGO PT D/C HOME TODAY AT INPT 1330 PM DINESES SOB PT ON A-FIB HR 119B/MIN
[2022-11-10] MEDS ORDERED: METOPROLOL SUCCINATE 25 MG TAB.SR.24H ONE (18:30)
[2022-11-10] MEDS ORDERED: ASPIRIN 325 MG TABLET PO ONE (18:30)
[2022-11-10] MEDS ORDERED: METOPROLOL TARTRATE INJ 5 MG/5 ML AMPUL IV ONE (18:30)
[2022-11-10] MEDS ORDERED: METOPROLOL SUCCINATE 50 MG TAB.SR.24H PO ONE (18:30)
[2022-11-10] MEDS ORDERED: METOPROLOL SUCCINATE 50 MG TAB.SR.24H PO SCH (18:30)
[2022-11-10 18:51] LABS: CALCIUM, SERUM 9.1 mg/dL (8.5-10.1); CREATININE 1.1 mg/dL (0.6-1.3); POTASSIUM 3.6 mmol/L (3.5-5.1)
--- NOTE | 2022-11-10 19:00 | NUR ---
JOHN CAMPBELL SENT TO LAB
--- NOTE | 2022-11-10 19:25 | NUR ---
HAND OFF ROBERTO MUJICA
[2022-11-10] MEDS ORDERED: MORPHINE SULFATE INJ 2 MG/ML DISP.SYRIN IV PRN (20:30)
[2022-11-10] MEDS ORDERED: ACETAMINOPHEN 325 MG TABLET PO PRN (20:30)
[2022-11-10] MEDS ORDERED: Z GUARD REMEDY 4 OZ OINT TP PRN (20:30)
[2022-11-10] MEDS ORDERED: ONDANSETRON HCL/PF 4 MG/2 ML VIAL IVP PRN (20:30)
[2022-11-10] MEDS ORDERED: ZOLPIDEM TARTRATE 5 MG TABLET PO PRN (20:30)
[2022-11-10] MEDS ORDERED: MAGNESIUM HYDROXIDE 30 ML UDC PO PRN (20:30)
[2022-11-10] MEDS ORDERED: MAG HYDROX/AL HYDROX/SIMETH 30 ML UDC PO PRN (20:30)
[2022-11-10 20:32] LABS: BASOPHILS # (AUTO) 0.1 K/uL (0.0-0.2); BASOPHILS % (AUTO) 0.7 % (0.0-2.0); EOSINOPHILS % (AUTO) 1.6 % (0.0-6.0); HEMATOCRIT 46 % (39-51); HEMOGLOBIN 15.3 g/dL (13.5-17.5); LYMPHOCYTES # (AUTO) 2.6 K/uL (0.8-4.8); LYMPHOCYTES % (AUTO) 35.7 % (20.0-44.0); MEAN CORPUSCULAR HGB CONC 33 g/dl (31.0-36.0); MEAN CORPUSCULAR VOLUME 103 fL (80-96); MONOCYTES # (AUTO) 0.7 K/uL (0.1-1.30); NEUTROPHILS # (AUTO) 3.7 K/uL (1.8-8.9); PLATELET COUNT (AUTO) 199 K/uL (150-450); RED BLOOD CELL COUNT(AUTO) 4.49 MIL/uL (4.5-6.0); WHITE BLOOD COUNT (AUTO) 7.2 K/uL (4.3-11.0)
--- NOTE | 2022-11-10 20:55 | NUR ---
ROOM 114-2
--- NOTE | 2022-11-10 21:21 | NUR ---
REPORT GIVEN TO SIL ANTONIO REJI
--- NOTE | 2022-11-10 22:27 | NUR ---
TRANSFERED TO [facility] 114-2
--- NOTE | 2022-11-10 22:30 | NUR ---
RN ADMITTING NOTE RECEIVED PT FROM ER VIA GURNEY ACCOMPANIED BY 2 ER STAFF, PT AMBULATED TO BED WITH ASSIST, AAO X 4, IN NO ACUTE DISTRESS, SATURATION AT 98% ON ROOM AIR, AFIB ON THE MONITOR HR IS 83. IV LINE AT LAC 20G PATENT AND FLUSHING WELL, NO S/S OF INFECTION OR INFILTRATION. PT IS CONTINENT AND ABLE TO USE URINAL. COMPREHENSIVE ASSESSMENT DONE, NO SKIN ISSUES NOTED, ALL BELONGINGS CHECKED AND LISTED, SAFETY MEASURES IMPLEMENTED, BED IS LOCKED AND AT LOWEST POSITION, HOB ELEVATED, CALL LIGHT WITHIN REACH OF PATIENT. WILL CONT TO MONITOR AND CARRY OUT MD ORDERS.
[2022-11-11] VITALS: BP 149/91
[2022-11-11] MEDS: METOPROLOL TARTRATE 25 MG TABLET PO SCH ×3 (00:21→12:45)
[2022-11-11 04:00] VITALS: BP 134/86
--- NOTE | 2022-11-11 07:20 | NUR ---
RN NOTE RECEIVED PATIENT IN BED RESTING ALERT ORIENTED X4,VERBALLY RESPONSIVE ON ROOM AIR O2:98% IV SITE LEFT AC INTACT PATENT,AMBUALTORY,CONTIENT BOWEL/BLADDER SAFETY MEASURE IMPLEMENT,BED IN LOW POSITION AND LOCKED CALL LIGHT WITHIN REACH,BED ALARM IS ON CONTINUE TO MONITOR.
[2022-11-11 07:55] LABS: BASOPHILS % (AUTO) 0.9 % (0.0-2.0); EOSINOPHILS % (AUTO) 3.7 % (0.0-6.0); HEMATOCRIT 41 % (39-51); HEMOGLOBIN 13.6 g/dL (13.5-17.5); LYMPHOCYTES % (AUTO) 40.8 % (20.0-44.0); MEAN CORPUSCULAR HGB CONC 34 g/dl (31.0-36.0); MEAN CORPUSCULAR VOLUME 102 fL (80-96); MONOCYTES # (AUTO) 0.5 K/uL (0.1-1.30); MONOCYTES % (AUTO) 10.4 % (2.0-12.0); NEUTROPHILS # (AUTO) 2.1 K/uL (1.8-8.9); NEUTROPHILS % (AUTO) 44.2 % (43.0-81.0); PLATELET COUNT (AUTO) 173 K/uL (150-450); RED BLOOD CELL COUNT(AUTO) 3.98 MIL/uL (4.5-6.0); WHITE BLOOD COUNT (AUTO) 4.8 K/uL (4.3-11.0)
[2022-11-11 08:00] VITALS: BP 135/106
[2022-11-11 08:37] LABS: CALCIUM, SERUM 8.7 mg/dL (8.5-10.1); CREATININE 0.9 mg/dL (0.6-1.3); MAGNESIUM 1.9 mg/dL (1.8-2.4); PHOSPHORUS 3.8 mg/dL (2.5-4.9); POTASSIUM 3.7 mmol/L (3.5-5.1)
[2022-11-11] MEDS ORDERED: TAMSULOSIN 0.4 MG CAP.SR.24H PO SCH (09:00)
[2022-11-11] MEDS ORDERED: THIAMINE HCL 100 MG TABLET PO SCH (09:00)
[2022-11-11] MEDS ORDERED: PANTOPRAZOLE 40 MG VIAL IV SCH (09:00)
[2022-11-11 12:45] VITALS: BP 119/81
--- NOTE | 2022-11-11 13:20 | NUR ---
THEATRICAL VARIETY AGENT NOTE PATIENT DISCHARGE TO CUSTODIAL,IN STABLE CONDITION,ALERT ORIENTED X4 VERBALLY RESPONSIVE ON ROOM AIR NO SOB NOT ACUTE DISTRESS NOTED EDUCATION PROVIDED REGARDING MEDICATIONS,CAREGIVER VERBALIZED UNDERSTOOD ALL TEACHING,HE WILL GET MEDIATION FROM PHARMACY, HE LEFT HOSPITAL IN STABLE CONDITION,BY PRIVATE CAR WITH CAREGIVER.PATIENT SIGNED ALL DISCHARGE PAPERS AND BELONGINGS.
[2022-11-11] MEDS ORDERED: SIMVASTATIN 40 MG TABLET PO SCH (18:00)
== END 2022-11-11 13:04 | disposition home or self-care (01) | DRG 201 ==
LOC: ER 18:33 → TELE1 21:48
PROVIDERS: ADMIT Nurse Practitioner Acute Care; ATTEND Nurse Practitioner Acute Care
DX: I48.91 Unspecified atrial fibrillation (principal); D53.9 Nutritional anemia, unspecified; E78.00 Pure hypercholesterolemia, unspecified; Z20.822 Contact with and (suspected) exposure to COVID-19; I10 Essential (primary) hypertension; Z79.01 Long term (current) use of anticoagulants; Z79.899 Other long term (current) drug therapy; Y90.0 Blood alcohol level of less than 20 mg/100 ml; I25.10 Atherosclerotic heart disease of native coronary artery without angina pectoris; N40.0 Benign prostatic hyperplasia without lower urinary tract symptoms; F17.200 Nicotine dependence, unspecified, uncomplicated; F10.90 Alcohol use, unspecified, uncomplicated
CPT/HCPCS: 36415; 71045-TC; 80048-TC; 83735-TC; 84100-TC; 84484-TC; 85025-TC; 87081-TC; C9113; C9803; G0378; G0480; J3490

== ENCOUNTER → 2022-12-12 | Day surgery (SDC) | payer MEDICAID ==
--- NOTE | 2022-12-11 13:00 | NUR ---
LITIGATION COUNSEL STUDY TERMINATED DUE TO EQUIPMENT MALFUNCTION. PT TOLERATED WELL
--- NOTE | 2022-12-11 13:15 | NUR ---
PT SENT BACK TO [facility] BY AMBULANCE. REPORT GIVEN TO PARAMEDICS. PT AWAKE AND ABLE TO TRANSFER TO [facility].
[~2022-12-12] VITALS: Ht 160 cm; Wt 63.5 kg
[~2022-12-12] MED LIST changes: -APIX5TAB PO; -ATOR10TA PO; +CT SWABBABLE VALVE TRANS SET 1 EA INFUS.SET MC ONE; +IOHEXOL-350 100 ML VIAL IV ONE; +IV NS 0.9% 250 ML IV ONE; +METOPROLOL TARTRATE INJ 5 MG/5 ML AMPUL ONE; +NITROGLYCERIN 0.4 MG/TAB BOTTLE ONE; +NITROGLYCERIN 0.4 MG/TAB BOTTLE SL ONE; -TRAM50TA2 PO
[2022-12-12] MEDS: METOPROLOL TARTRATE INJ 5 MG/5 ML AMPUL IVP PRN ×10 (11:05→11:50)
[2022-12-12 12:00] VITALS: BP 127/82
== END | disposition home or self-care (01) ==
LOC: CT 12-11 10:04
PROVIDERS: ATTEND Internal Medicine Interventional Cardiology
DX: I25.10 Atherosclerotic heart disease of native coronary artery without angina pectoris (principal); I51.7 Cardiomegaly; I31.39 Other pericardial effusion (noninflammatory); I48.91 Unspecified atrial fibrillation
CPT/HCPCS: 75574; J3490 ×6; J7050 ×2; Q9967 ×2

== ENCOUNTER 2022-12-15 22:27 | Emergency (ER) | payer MEDICAID ==
[~2022-12-15] VITALS: Ht 167.6 cm; Wt 65.8 kg
[~2022-12-15 22:27] MED LIST changes: -CT SWABBABLE VALVE TRANS SET 1 EA INFUS.SET MC ONE; -IOHEXOL-350 100 ML VIAL IV ONE; -IV NS 0.9% 250 ML IV ONE; -METOPROLOL TARTRATE INJ 5 MG/5 ML AMPUL ONE; -NITROGLYCERIN 0.4 MG/TAB BOTTLE ONE; -NITROGLYCERIN 0.4 MG/TAB BOTTLE SL ONE
--- NOTE | 2022-12-15 22:50 | NUR ---
[id number] C/O CHEST PAIN 1HR CERTIFIED RECREATIONAL THERAPIST NON RADIATING 6/10 PAIN 1 SPRAY OF NITRO AND ASPIRIN 324 GIVEN BY EMS CERTIFIED RECREATIONAL THERAPIST. PT IS AAO X 4, BREATHING UNLABORED, AFIB ON THE MONITOR, HR IS 88. PT RATES PAIN AT 6/10. PT ATTACHED TO MONITOR AND PULSE OX. AWAITING MD GUADALUPE.
--- NOTE | 2022-12-15 22:52 | NUR ---
AFSHAN ESTABLISHED, [facility]
--- NOTE | 2022-12-15 22:53 | NUR ---
BLOOD COLLECTED AND SENT TO LAB
--- NOTE | 2022-12-15 22:55 | NUR ---
EKG RESULTED, AFIB AT 86
--- NOTE | 2022-12-15 23:00 | NUR ---
SBP NOTED AT 70-80'S. DR MOON WAS MADE AWARE
--- NOTE | 2022-12-15 23:11 | NUR ---
DR MOON AT BEDSIDE
[2022-12-15 23:16] LABS: BASOPHILS % (AUTO) 0.4 % (0.0-2.0); EOSINOPHILS % (AUTO) 0.6 % (0.0-6.0); HEMATOCRIT 39 % (39-51); HEMOGLOBIN 13.3 g/dL (13.5-17.5); LYMPHOCYTES # (AUTO) 1.3 K/uL (0.8-4.8); LYMPHOCYTES % (AUTO) 16.7 % (20.0-44.0); MEAN CORPUSCULAR HGB CONC 34 g/dl (31.0-36.0); MEAN CORPUSCULAR VOLUME 101 fL (80-96); MONOCYTES # (AUTO) 0.5 K/uL (0.1-1.30); MONOCYTES % (AUTO) 6.2 % (2.0-12.0); NEUTROPHILS # (AUTO) 5.9 K/uL (1.8-8.9); NEUTROPHILS % (AUTO) 76.1 % (43.0-81.0); PLATELET COUNT (AUTO) 181 K/uL (150-450); WHITE BLOOD COUNT (AUTO) 7.8 K/uL (4.3-11.0)
[2022-12-15 23:24] LABS: CALCIUM, SERUM 9.2 mg/dL (8.5-10.1); CARBON DIOXIDE 29 mmol/L (21-32); CHLORIDE 104 mmol/L (98-107); CREATININE 1.8 mg/dL (0.6-1.3); GLUCOSE 143 mg/dL (74-106); POTASSIUM 4.3 mmol/L (3.5-5.1); SODIUM SERUM 139 mmol/L (136-145); UREA NITROGEN, BLOOD 29 mg/dL (7-18)
[2022-12-15] MEDS ORDERED: IV NS 0.9% 1,000 ML IV ONE (23:30)
[2022-12-16] MEDS ORDERED: ACETAMINOPHEN ES 500 MG TABLET PO ONE
[2022-12-16] MEDS ORDERED: ACETAMINOPHEN ES 500 MG TABLET ONE ×2 (00:04→00:06)
--- NOTE | 2022-12-16 00:22 | NUR ---
SMOKE ROOM OPERATOR AT BEDSIDE
--- NOTE | 2022-12-16 01:20 | NUR ---
[facility] AMBUL[facility] TRANSPORTATION ETA 45-60 MINUTES.
--- NOTE | 2022-12-16 02:29 | NUR ---
Patient discharged to home in stable condition. Written and verbal after care instructions given. Patient verbalizes understanding of instruction. Patient picked by EMT ([facility]), VS WNL.
[2022-12-16 02:30] VITALS: BP 91/68
== END 2022-12-16 02:31 | disposition home or self-care (01) ==
LOC: ER 22:33
DX: R07.89 Other chest pain (principal); I10 Essential (primary) hypertension; I48.91 Unspecified atrial fibrillation; Z79.899 Other long term (current) drug therapy
CPT/HCPCS: 99285; 96360; 71045; 93005 ×3; 85025; 80048; 36415 ×2; 84484 ×2; 83880; J7030